=== PATIENT | male | born 1980 | race Caucasian/White ===

== ENCOUNTER 2023-03-09 22:10 | Emergency (ER) | payer BC ==
[2023-03-09] MEDS ORDERED: Bacitracin Oint 28.35 GM Tube TOP ONE (23:49)
[2023-03-10] MEDS ORDERED: Bacitracin Oint 1 GM U/D Packet TOP ONE (00:02)
== END 2023-03-10 00:07 | disposition home or self-care (01) ==
LOC: JP.ED 22:10
DX: S60.451A Superficial foreign body of left index finger, initial encounter (principal); W45.8XXA Other foreign body or object entering through skin, initial encounter
CPT/HCPCS: 99283; A9270-GY